=== PATIENT | male | born 1985 | race Caucasian/White ===

== ENCOUNTER → 2017-12-11 | Outpatient (CLI) | payer BC, OTHER | LOC: M WUC 19:26 | DX: M25.572 Pain in left ankle and joints of left foot (principal) | CPT/HCPCS: 73610 ==

== ENCOUNTER → 2018-06-15 | Outpatient (CLI) | payer BC, OTHER ==
--- NOTE | 2018-06-19 10:13 | SLEEPCENT ---
DATE OF PROCEDURE: 06/15/2018 ORDERED BY: RHINA Gray Nocturnal polysomnography was performed for evaluation of sleep physiology in this patient with a history of excessive somnolence, morning headaches, and nonrestorative sleep. 6 hours and 41 minutes of data were reviewed. There were 330 minutes of sleep identified. Sleep latency was mildly prolonged at 39 minutes. Rapid eye movement (REM) latency was prolonged 73.5 minutes. Sleep architecture was fairly well-preserved with 4 REM cycles. Overall sleep efficiency was 83.6%. The electrocardiogram showed a sinus rhythm with an average heart rate of 68 beats per minute. Rate ranged 50-90 beats per minute. Electroencephalogram (EEG) showed normal waveforms for wake and sleep stages. There were 144 respiratory events identified of 10 seconds in duration or greater for an apnea-hypopnea index of 26.1. The events were primarily obstructive, not exclusive to sleep stage nor body posture and more frequent in the supine position. Arousals from respiratory events occurred 2.9 times per hour and oxygen desaturations were seen into the low 80s. There was some activity noted in the limb EMG leads, but limb movement arousal index was 2.4. IMPRESSION: Obstructive sleep apnea syndrome (G47.33). Apnea-hypopnea index 26.1. RECOMMENDATION: The patient should be encouraged to return to the sleep disorder center for pressure therapy. In the interim, alcohol and sedative avoidance should be practiced and caution exercised during the operation of motor vehicles.
== END ==
LOC: M SLEEP 19:16
PROVIDERS: ATTEND Nurse Practitioner Family
DX: G47.33 Obstructive sleep apnea (adult) (pediatric) (principal)

== ENCOUNTER → 2018-07-11 | Outpatient (CLI) | payer BC, OTHER ==
--- NOTE | 2018-07-13 16:19 | SLEEPCENT ---
DATE OF STUDY: 07/11/2018 ORDERED BY: ALLISON Gray Nocturnal polysomnography was performed for the titration of pressure therapy in this patient with obstructive sleep apnea syndrome. Apnea-hypopnea index of 26.1. For testing a ResMed F20 full-face mask of medium size was used; 4 cm of water pressure were applied to the circuit and the lights were extinguished. 8 hours and 27 minutes of data were reviewed. There were 443 minutes of sleep identified. Sleep latency was prolonged 46 minutes. Rapid eye movement (REM) latency was normal at 62 minutes. Sleep architecture was good. There were 4 REM cycles noted. Overall sleep efficiency was 88.4%. The electrocardiogram showed a sinus rhythm with an average heart rate 68 beats per minute. Rate ranged 51-100. Electroencephalogram (EEG) showed normal waveforms for awake and sleep stages. No focal events were identified. Persistence of respiratory events prompted increase in CPAP from 4 to the optimal pressure of +11 with which the patient slept through REM without significant respiratory event or oxygen desaturation. There was some background limb activity in the electromyogram (EMG) leads. Limb movement arousal index was only 1.6. IMPRESSION: Obstructive sleep apnea syndrome (G47.33). RECOMMENDATIONS: Nightly use of pressure therapy 11 cm of water.
== END ==
LOC: M SLEEP 20:00
PROVIDERS: ATTEND Nurse Practitioner Family
DX: G47.33 Obstructive sleep apnea (adult) (pediatric) (principal)

== ENCOUNTER → 2018-10-27 | Outpatient (REF) | payer OTHER ==
[2018-10-31 00:06] LABS: TESTOSTERONE FREE (DIRECT) 10.3 pg/mL (8.7-25.1)
== END ==
LOC: M LAB REF 16:44
PROVIDERS: ATTEND Nurse Practitioner Adult Health
DX: R53.83 Other fatigue (principal)

== ENCOUNTER → 2019-02-15 | Outpatient (CLI) | payer BC, OTHER ==
--- NOTE | 2019-02-15 20:33 | REP ---
Clinical: Trauma. Technique: AP, lateral, bilateral oblique views right foot . Findings: The osseous structures and joint spaces are intact and normal. There is no evidence for acute fracture or dislocation. Surrounding soft tissues are unremarkable. No subcutaneous emphysema or radiodense foreign body. Impression: Normal right foot series. No acute fracture or dislocation. Electronically Signed by Claude Coleman MD 02/15/2019 08:24 P
== END ==
LOC: M WUC 12:40
PROVIDERS: ATTEND Physician Assistant
DX: M79.674 Pain in right toe(s) (principal)

== ENCOUNTER → 2019-07-23 | Outpatient (REF) | payer OTHER | LOC: M LAB REF 11:44 | PROVIDERS: ATTEND Internal Medicine | DX: Z11.59 Encounter for screening for other viral diseases (principal) ==

== ENCOUNTER → 2020-01-12 | Outpatient (REF) | payer OTHER ==
[2020-01-12 13:01] LABS: HEMATOCRIT 44.1 % (42.0-52.0)
[2020-01-12 13:28] LABS: PERCENT SATURATION 18.6 % (19.7-50.0); PHOSPHORUS LEVEL 3.2 MG/DL (2.5-4.9)
== END ==
LOC: M LAB REF 12:16
PROVIDERS: ATTEND Internal Medicine
DX: K91.2 Postsurgical malabsorption, not elsewhere classified (principal); Z98.84 Bariatric surgery status

== ENCOUNTER → 2020-06-15 | Outpatient (REF) | payer OTHER ==
[2020-06-15 13:52] LABS: HEMATOCRIT 42.7 % (42.0-52.0)
[2020-06-15 13:59] LABS: PERCENT SATURATION 28.2 % (19.7-50.0); PHOSPHORUS LEVEL 3.2 MG/DL (2.5-4.9)
== END ==
LOC: M LAB REF 12:45
PROVIDERS: ATTEND Nurse Practitioner Adult Health
DX: K91.2 Postsurgical malabsorption, not elsewhere classified (principal); Z86.39 Personal history of other endocrine, nutritional and metabolic disease; Z98.84 Bariatric surgery status

== ENCOUNTER → 2020-09-04 | Outpatient (REF) | payer OTHER | LOC: M LAB REF 11:09 | PROVIDERS: ATTEND Physician Assistant Medical | DX: L03.90 Cellulitis, unspecified (principal) ==

== ENCOUNTER → 2021-06-15 | Outpatient (CLI) | payer BC, OTHER | LOC: M SLEEP 20:00 | PROVIDERS: ATTEND Nurse Practitioner Family | DX: G47.33 Obstructive sleep apnea (adult) (pediatric) (principal); R06.83 Snoring ==

== ENCOUNTER → 2021-08-03 | Outpatient (CLI) | payer BC, OTHER | LOC: M SOG 07:57 | PROVIDERS: ATTEND Orthopaedic Surgery Hand Surgery | DX: M25.511 Pain in right shoulder (principal) ==

== ENCOUNTER → 2021-12-11 | Outpatient (CLI) | payer OTHER | LOC: M PLAIMG 07:27 | PROVIDERS: ATTEND Orthopaedic Surgery Hand Surgery | DX: M25.511 Pain in right shoulder (principal); M65.811 Other synovitis and tenosynovitis, right shoulder ==

== ENCOUNTER → 2022-10-02 | Outpatient (CLI) | payer OTHER | LOC: M WUC 12:07 | PROVIDERS: ATTEND Nurse Practitioner Adult Health | DX: M79.671 Pain in right foot (principal) ==